=== PATIENT | female | born 1970 | race Caucasian/White ===

== ENCOUNTER 2017-09-01 23:41 | Emergency (ER) | payer OTHER ==
[~2017-09-01] VITALS: Ht 167.6 cm; Wt 47.6 kg
[~2017-09-01 23:41] MED LIST: NOHOMEMEDICATIONS
[2017-09-02 00:31] LABS: ABSOLUTE BASOPHILS 0.1 thou/uL (0.0-0.2); ABSOLUTE EOSINOPHILS 0.1 thou/uL (0.0-0.7); ABSOLUTE LYMPHOCYTES 1.9 thou/uL (0.8-5.3); ABSOLUTE MONOCYTES 0.8 thou/uL (0.0-1.2); ABSOLUTE NEUTROPHILS 4.5 thou/uL (1.6-8.1); BASOPHILS 1.4 %; EOSINOPHILS 1.8 %; HEMATOCRIT 35.8 % (37.0-47.0); HEMOGLOBIN 12.2 gm/dL (12.0-15.0); LYMPHOCYTES 25.8 %; MCH 30.7 pg (26.0-34.0); MCV 90.3 fL (80.0-100.0); MONOCYTES 10.2 %; MPV 7.9 fl. (7.2-11.1); NUCLEATED RBCS 0 /100WBC; PLATELET COUNT* 265 thou/uL (150-400); POLYS 60.8 %; RBC 3.97 mil/uL (4.20-5.00); RDW-CV 12.3 % (10.5-14.5); WBC 7.4 thou/uL (4.0-11.0)
[2017-09-02 00:42] LABS: CALCIUM 8.8 mg/dL (8.5-10.1); CREATININE 0.9 mg/dL (0.6-1.3); POTASSIUM 3.2 mmol/L (3.5-5.1)
[2017-09-02] MEDS ORDERED: ATIVAN0.5 MG PO (01:18)
[2017-09-02 01:30] VITALS: BP 95/62
--- NOTE | 2017-09-02 12:40 | EKG ---
[place] [address] ELECTROCARDIOGRAM REPORT Name: GLADIS DELGADO Room: [facility]#: [id number] Admission: 09/01/17 Attend Phys: Discharge: 09/02/17 Date of : 68 Report #: [id number] THIS REPORT FOR: //name// [facility] ED Test Date: 2017-09-02 Test Time: 00:26:05 Pat Name: GLADIS MORRISSEYOLSON Department: Room: Gender: F Robotic Technician: RUCHI : 1970 Requested By: Jorge Nieves Order Number: [id number] MD: David Pryor Measurements Intervals Ranger Rate: 93 P: 60 MA: 160 QRS: 125 QRSD: 93 T: 4 QT: 366 QTc: 456 Interpretive Statements Sinus rhythm Low voltage, extremity and precordial leads rightward axis septal q waves noted No previous ECG available for comparison Electronically Signed On 09-02-2017 12:40:02 [employer] by David Pryor [email or web address] <ELECTRONICALLY SIGNED> By: David Pryor MD, [facility] 09/02/17 1240 D: 0125 David Pryor MD, FACC /EPI
== END 2017-09-02 01:30 | disposition home or self-care (01) ==
LOC: M.ERS 23:41
PROVIDERS: Physician Assistant
DX: F41.9 Anxiety disorder, unspecified (principal)